=== PATIENT | female | born 1935 | race Caucasian/White ===

== ENCOUNTER 2016-12-18 16:59 | Emergency (ER) | payer MEDICARE, OTHER ==
[2016-12-18] MEDS ORDERED: Sodium Chloride 0.9% 1,000 ML IV ONE (17:08)
[2016-12-18] MEDS ORDERED: Sodium Chloride 0.9% 10 ML Syringe FLUSH PRN (17:08)
[2016-12-18] MEDS ORDERED: Meropenem 1 GM in Sodium Chloride 0.9% 100 ML IV ONE ×2 (17:19→17:51)
--- NOTE | 2016-12-18 17:19 | EDM.PDOC ---
ED HPI Skin/Rash - General Chief Complaint: Skin Complaint Stated Complaint: wound infection Time Seen by Provider: 12/18/16 17:06 Source: Reports: Patient, Family History Limitations: Reports: No limitations - History of Present Illness INITIAL COMMENTS - FREE TEXT/NARRATIVE: Patient reports a left inguinal hernia repair performed by Dr. Maldonado from [place] performed here on December 08. She admits to having some post operative pain, but approximately 4 days ago, the pain did increase, she began to have fever, and she did notice a hardening lump under her incision. She also states fewer bowel movements than usual, not passing as much gas. Denies confusion, shortness of breath. Has been very tired the last few days and was encouraged by family to be seen. Transferred here from the [facility] and Dr. Frias. No nausea or vomiting. Symptom Onset Date: 12/14/16 Timing: Reports: still present, worse, gradual onset Location, Skin: Reports: abdomen Front/Back Body Image: 1 - site 17 cm transversely. 13 cm vertically Quality: Reports: Ache, Pressure Severity: moderate Known Identified Source: possible/maybe Place of Occurrence: other (post operative) Sick Contact: no Associated Symptoms: Reports: fever/chills, malaise, loss of appetite Similar Symptoms Previously: no Recent Medical Care: yes - Related Data Allergies Allergy/AdvReac Type Severity Reaction Status Date / Time hydroxychloroquine Allergy Shortness Verified 12/18/16 17:16 [From Plaquenil] of Breath minocycline Allergy Hives Verified 12/18/16 17:16 terbinafine [From Lamisil] Allergy Other Verified 12/18/16 17:16 Home Meds: Ambulatory Orders Medication Instructions Recorded Confirmed Aspirin [Halfprin] 81 mg PO DAILY 12/04/16 12/08/16 Calcium Carbonate [Calcium] 500 mg PO DAILY 12/04/16 12/08/16 Hydrochlorothiazide 25 mg PO DAILY 12/04/16 12/08/16 Isosorbide Mononitrate [Imdur] 30 mg PO DAILY 12/04/16 12/08/16 Levothyroxine [Synthroid] 100 mcg PO DAILY 12/04/16 12/08/16 Metoprolol Tartrate [Lopressor] 25 mg PO BID 12/04/16 12/08/16 Multivitamin [Multivitamins] 2 tab PO DAILY 12/04/16 12/08/16 Simvastatin [Zocor] 10 mg PO DAILY 12/04/16 12/08/16 Triamcinolone Acetonide 1 applic TOP BID 12/04/16 12/04/16 [Triamcinolone Acetonide 0.1% Crm] Past Medical History HEENT History: Reports: Cataract, Macular degeneration Cardiovascular History: Reports: CAD, Hypertension Respiratory History: Reports: None Gastrointestinal History: Reports: Colon polyp, Other (see below) Other Gastrointestinal History: Left Inguinal hernia Genitourinary History: Reports: Urinary incontinence Musculoskeletal History: Reports: Osteoarthritis Neurological History: Reports: None Psychiatric History: Reports: None Endocrine/Metabolic History: Reports: Hypothyroidism Hematologic History: Reports: None Immunologic History: Reports: None Oncologic (Cancer) History: Reports: None Dermatologic History: Reports: None - Past Surgical History Head Surgeries/Procedures: Reports: None HEENT Surgical History: Reports: Cataract surgery Cardiovascular Surgical History: Reports: None GI Surgical History: Reports: Appendectomy, Colonoscopy Female Surgical History: Reports: Hysterectomy Musculoskeletal Surgical History: Reports: None Social & Family History - Tobacco Use Smoking Status *Q: Never Smoker - Alcohol Use Days Per Week of Alcohol Use: 0 Number of Drinks Per Day: 0 Total Drinks Per Week: 0 - Recreational Drug Use Recreational Drug Use: No Drug Use in Last 12 Months: No ED ROS GENERAL - Review of Systems Review Of Systems: See Below Constitutional: Reports: fever, malaise, fatigue, decreased appetite. Denies: chills HEENT: Reports: No symptoms Respiratory: Reports: no symptoms Cardiovascular: Reports: No symptoms Endocrine: Reports: no symptoms GI/Abdominal: Reports: Abdominal pain (left lower quadrant), Decreased appetite , Other (reduction in stools and flatus) : Reports: no symptoms Musculoskeletal: Reports: no symptoms Skin: Reports: erythema, wound, other (wound hardness) Neurological: Reports: no symptoms Psychiatric: Reports: No symptoms Hematologic/Lymphatic: Reports: no symptoms Immunologic: Reports: no symptoms ED EXAM, SKIN/RASH Exam: See Below Exam Limited By: No limitations General Appearance: alert, WD/WN, no apparent distress Eye Exam: bilateral eye: EOMI, PERRL Ears: normal TMs Nose: normal inspection Throat/Mouth: Normal inspection, Normal oropharynx Head: atraumatic, normocephalic Neck: normal inspection, supple, non-tender, full range of motion Respiratory/Chest: no respiratory distress, lungs clear, normal breath sounds, no accessory muscle use, chest non-tender Cardiovascular: normal peripheral pulses, regular rate, rhythm, no edema, no JVD , no murmur Peripheral Pulses: 2+: posterior tibial (L), posterior tibial (R), dorsalis pedis (L), dorsalis pedis (R) GI/Abdominal: tender (tender left lower quadrant, transverse incision from inguinal hernia surgery, ecchymotic, erythemic, hot to palpation, hard large subcutaneous nodule/abscess, no drainage from wound ) Location, Skin: abdomen (LLQ; transverse incision from inguinal hernia surgery, ecchymotic, erythemic, hot to palpation, hard large subcutaneous nodule/abscess , no drainage from wound, incision C/D/I) Characteristics: erythematous Associated features: warmth, tenderness, swelling, inflammation. No: crusting, weeping Lymphatic: no adenopathy Course - Vital Signs Last Recorded V/S: Last Vital Signs Temp 38.7 C H 12/18/16 17:05 Pulse 95 12/18/16 17:05 Resp 20 12/18/16 17:05 BP 153/73 H 12/18/16 17:05 Pulse Ox - Orders/Labs/Meds Orders: Active Orders 24 hr Category Date Time Status Abdomen Pelvis w Cont [CT] Stat Exams 12/18/16 17:39 Taken CULTURE BLOOD [BC] Stat Lab 12/18/16 17:25 Results CULTURE BLOOD [BC] Stat Lab 12/18/16 17:34 Results Sodium Chloride 0.9% [Saline Flush] Med 12/18/16 17:08 Active 10 ml FLUSH ASDIRECTED PRN Blood Culture x2 Reflex Set [OM.PC] Stat Oth 12/18/16 17:08 Ordered Saline Lock Insert [OM.PC] Routine Oth 12/18/16 17:08 Ordered Medication Orders Sodium Chloride (Saline Flush) 10 ml FLUSH ASDIRECTED PRN PRN Reason: Keep Vein Open Labs: Laboratory Tests 12/18/16 12/18/16 12/18/16 Range/Units 17:25 17:25 17:25 WBC 6.9 (4.0-10.0) x10^3/uL RBC 3.20 L (4.00-5.50) x10^6/uL Hgb 10.4 L (12.0-16.0) g/dL Hct 31.0 L (33.0-47.0) % MCV 96.9 H (78.0-93.0) fL MCH 32.5 H (26.0-32.0) pg MCHC 33.5 (32.0-36.0) g/dL RDW Coeff of Candi 12.6 (10.0-15.0) % Plt Count 201 (130-400) x10^3/uL Neut % (Auto) 64.3 (50.0-80.0) % Lymph % (Auto) 16.2 L (25.0-50.0) % [place] % (Auto) 18.8 H (2.0-11.0) % Eos % (Auto) 0.6 (0.0-4.0) % Baso % (Auto) 0.1 L (0.2-1.2) % Sodium 134 L (138-146) mmol/L Potassium 3.7 (3.5-4.9) mmol/L Chloride 96 L (98-109) mmol/L Carbon Dioxide 26 (24-29) mmol/L BUN 12 (8-26) mg/dL Creatinine 0.6 (0.6-1.3) mg/dL Est Cr Clr Drug Dosing 65.65 mL/min Estimated GFR (MDRD) > 60 Glucose 157 H (70-105) mg/dL Lactic Acid 2.7 H (0.4-2.0) mmol/L Calcium 8.5 (8.5-10.1) mg/dL Corrected Calcium 9.62 (8.5-10.1) mg/dL Total Bilirubin 0.7 (0.2-1.0) mg/dL AST 33 (15-37) U/L ALT 27 (14-59) U/L Alkaline Phosphatase 86 (46-116) U/L C-Reactive Protein 11.6 H (<=0.9) mg/dL Total Protein 7.2 (6.4-8.2) g/dL Albumin 2.6 L (3.4-5.0) g/dL Globulin 4.6 Albumin/Globulin Ratio 0.57 Meds: Medications Generic Name Dose Route Start Last Admin Trade Name Bettye PRN Reason Stop Dose Admin Sodium Chloride 10 ml 12/18/16 17:08 Saline Flush FLUSH ASDIRECTED PRN Keep Vein Open Discontinued Medications Generic Name Dose Route Start Last Admin Trade Name Bettye PRN Reason Stop Dose Admin Sodium Chloride 1,000 mls @ 999 mls/hr 12/18/16 17:08 12/18/16 17:49 Normal Saline IV 12/18/16 18:08 999 mls/hr .BOLUS ONE Administration Meropenem 1 gm/ Sodium 100 mls @ 200 mls/hr 12/18/16 17:19 Chloride IV 12/18/16 17:48 ONETIME ONE Vancomycin HCl 1 gm/ Sodium 250 mls @ 250 mls/hr 12/18/16 17:19 Chloride IV 12/18/16 18:18 ONETIME ONE Meropenem 1 gm/ Sodium 100 mls @ 200 mls/hr 12/18/16 17:51 Chloride IV 12/18/16 18:20 ONETIME ONE Vancomycin HCl 1 gm/ Sodium 250 mls @ 250 mls/hr 12/18/16 17:51 12/18/16 17: 58 Chloride IV 12/18/16 18:50 250 mls/hr ONETIME ONE Administration Sodium Chloride 100 mls @ 2 mls/sec 12/18/16 18:16 12/18/16 18:17 Normal Saline IV 12/18/16 18:17 2 mls/sec ONETIME ONE Administration Iopamidol 100 ml 12/18/16 18:16 12/18/16 18:17 Isovue-300 (61%) IVPUSH 12/18/16 18:17 100 ml ONETIME ONE Administration Meropenem 1 gm 12/18/16 18:00 Merrem IV 12/18/16 18:01 ONETIME ONE Meropenem 1 gm 12/18/16 18:00 12/18/16 17:53 Merrem IVPUSH 12/18/16 18:01 1 gm ONETIME ONE Administration - Re-Assessments/Exams Free Text/Narrative Re-Assessment/Exam: 12/18/16 20:28 Upon results of labs, 1 gram Merrem, and [address] Joe Foy, general surgeon from [place] called for consultation after CT abdomen showed abscess. He did recommend to send her home with NPO status after midnight and arrival to the [facility] tomorrow AM at 0630 for I & D of abdominal abscess. Departure - Departure Time of Disposition: 19:22 Disposition: Home, Self-Care 01 Condition: fair Clinical Impression: Abdominal visceral abscess Instructions: Abdominal Pain, Adult, [id number] Additional Instructions: Do not eat or drink anything after midnight tonight Dr. Joe Foy, general surgeon military education coordinator wants you to go to [facility] tomorrow morning at 0630. You will undergo surgery to drain the abscess and treat with additional antibiotics I would advise that if you have any problems during the evening that you go to the [facility] as they will be doing the surgery and admitting you Please call with any questions. - Problem List & Annotations (1) Abdominal visceral abscess SNOMED Code(s): 15058314 Code(s): K65.1 - PERITONEAL ABSCESS Status: Acute Priority: Medium Current Visit: Yes - Problem List Review Problem List Initiated/Reviewed/Updated: Yes - My Orders Last 24 Hours: My Active Orders 12/18/16 17:08 Sodium Chloride 0.9% [Saline Flush] 10 ml FLUSH ASDIRECTED PRN Blood Culture x2 Reflex Set [OM.PC] Stat Saline Lock Insert [OM.PC] Routine 12/18/16 17:25 CULTURE BLOOD [BC] Stat 12/18/16 17:34 CULTURE BLOOD [BC] Stat 12/18/16 17:39 Abdomen Pelvis w Cont [CT] Stat - Assessment/Plan Last 24 Hours: My Active Orders 12/18/16 17:08 Sodium Chloride 0.9% [Saline Flush] 10 ml FLUSH ASDIRECTED PRN Blood Culture x2 Reflex Set [OM.PC] Stat Saline Lock Insert [OM.PC] Routine 12/18/16 17:25 CULTURE BLOOD [BC] Stat 12/18/16 17:34 CULTURE BLOOD [BC] Stat 12/18/16 17:39 Abdomen Pelvis w Cont [CT] Stat Assessment:: left lower quadrant abdominal abscess Plan: Do not eat or drink anything after midnight tonight Dr. Joe Foy, general surgeon military education coordinator wants you to go to [facility] tomorrow morning at 0630. You will undergo surgery to drain the abscess and treat with additional antibiotics I would advise that if you have any problems during the evening that you go to the [facility] as they will be doing the surgery and admitting you Please call with any questions.
[2016-12-18 17:35] VITALS: BP 153/73
[2016-12-18 17:48] LABS: SODIUM,NA 134 mmol/L (138-146)
[2016-12-18 17:49] LABS: CHLORIDE,CL 96 mmol/L (98-109)
[2016-12-18] MEDS ORDERED: Meropenem 1 GM SDV IV ONE (18:00)
[2016-12-18] MEDS ORDERED: Meropenem 1 GM SDV IVPUSH ONE (18:00)
[2016-12-18] MEDS ORDERED: Iopamidol 612 MG/ML 100 ML Bottle IVPUSH ONE (18:16)
[2016-12-18] MEDS ORDERED: Sodium Chloride 0.9% 100 ML IV ONE (18:16)
== END 2016-12-18 20:12 | disposition home or self-care (01) ==
LOC: VM.ED 16:59
DX: K65.1 Peritoneal abscess (principal); I25.10 Atherosclerotic heart disease of native coronary artery without angina pectoris; I10 Essential (primary) hypertension; E03.9 Hypothyroidism, unspecified; Z88.5 Allergy status to narcotic agent; Z88.1 Allergy status to other antibiotic agents; Z79.82 Long term (current) use of aspirin; Z79.899 Other long term (current) drug therapy; M19.90 Unspecified osteoarthritis, unspecified site; Z90.49 Acquired absence of other specified parts of digestive tract; Z90.710 Acquired absence of both cervix and uterus
CPT/HCPCS: 36415; 74177; 80053; 83605; 85025; 86140; 87040; 96361; 96365; 96375; 99285; J2185; J3370; J7030; J7050; Q9967

== ENCOUNTER 2023-02-09 03:05 | Inpatient (IN) | payer MEDICARE, OTHER ==
[2023-02-09] MEDS ORDERED: Sodium Chloride 0.9% 1,000 ML IV ONE (03:28)
[2023-02-09 03:58] LABS: HEMATOCRIT 42.2 % (33.0-47.0); HEMOGLOBIN 14.8 g/dL (12.0-16.0); IMMATURE GRAN ABSOLUTE AUTO 0.01 x10^3/uL (0.00-0.07); LYMPHOCYTES ABSOLUTE AUTO 0.8 x10^3/uL (1.0-4.8); LYMPHOCYTES PERCENT AUTO 8.4 % (25.0-50.0); MEAN CORPUSCULAR HGB CONC 35.1 g/dL (32.0-36.0); MONOCYTES ABSOLUTE AUTO 1.3 x10^3/uL (0.0-0.8); MONOCYTES PERCENT AUTO 14.1 % (2.0-11.0); NEUTROPHILS ABSOLUTE AUTO 7.3 x10^3/uL (1.8-7.7); NEUTROPHILS PERCENT AUTO 77.4 % (50.0-80.0); PLATELET COUNT,PLT 128 x10^3/uL (130-400); RED BLOOD CELL COUNT 4.49 x10^6/uL (4.00-5.50); WHITE BLOOD CELL COUNT,WBC 9.4 x10^3/uL (4.0-10.0)
[2023-02-09] MEDS ORDERED: Acetaminophen 325 MG Tab PO ONE (04:16)
[2023-02-09 04:22] LABS: A/G RATIO 0.67; ALANINE AMINOTRANSFERASE,ALT 80 U/L (14-59); ALKALINE PHOSPHATASE 91 U/L (46-116); ASPARTATE AMNIOTRANSFERASE,AST 183 U/L (15-37); BILIRUBIN TOTAL 1.3 mg/dL (0.2-1.0); BLOOD UREA NITROGEN,BUN 16 mg/dL (7-18); C-REACTIVE PROTEIN 1.8 mg/dL (<=0.9); CALCIUM 8.8 mg/dL (8.5-10.1); CARBON DIOXIDE,CO2 27 mmol/L (21-32); CHLORIDE,CL 97 mmol/L (98-107); CREATININE 1.1 mg/dL (0.55-1.02); GLUCOSE RANDOM 179 mg/dL (70-99); LIPASE 39 U/L (73-393); POTASSIUM,K 3.2 mmol/L (3.5-5.1); PROTEIN TOTAL,TP 7.5 g/dL (6.4-8.2); SODIUM,NA 135 mmol/L (136-145)
[2023-02-09 04:26] LABS: ANION GAP 14.2 mmol/L (5-15)
[2023-02-09 04:27] LABS: ESTIMATED GFR 49 mL/min (>=60)
[2023-02-09] MEDS ORDERED: cefTRIAXone 1 GM Vial IVPUSH ONE (04:27)
[2023-02-09 04:41] LABS: CORONAVIRUS COVID-19 NAA NEGATIVE (NEGATIVE); INFLUENZA A NAA NEGATIVE (NEGATIVE); INFLUENZA B NAA NEGATIVE (NEGATIVE)
[2023-02-09 04:42] LABS: RESPIRATORY SYNCYTIAL VIR NAA NEGATIVE (NEGATIVE)
[2023-02-09] MEDS ORDERED: Iopamidol 612 MG/ML 100 ML Bottle IVPUSH ONE (04:53)
[2023-02-09 06:43] LABS: APPEARANCE,URINE CLOUDY (CLEAR); BILIRUBIN,URINE NEGATIVE (NEGATIVE); COLOR,URINE YELLOW (YELLOW); GLUCOSE,URINE NEGATIVE (NEGATIVE); KETONES,URINE NEGATIVE (NEGATIVE); LEUKOCYTE ESTERASE,URINE NEGATIVE (NEGATIVE); NITRITE,URINE POSITIVE (NEGATIVE); OCCULT BLOOD,URINE LARGE (NEGATIVE); PH,URINE 5.5 (5.0-8.0); PROTEIN,URINE >=300 mg/dL (NEGATIVE); UROBILINOGEN,URINE 0.2 EU/dL (0.2)
[2023-02-09 06:58] LABS: BACTERIA,URINE MANY /HPF (NOT SEEN); MUCUS,URINE RARE /LPF (NOT SEEN); SQUAMOUS EPITHELIAL CELLS,UR NOT SEEN /HPF (NOT SEEN)
[2023-02-09] MEDS ORDERED: Heparin Sodium 5,000 Units/ML Vial IVPUSH ONE ×2 (07:44)
[2023-02-09] MEDS ORDERED: KCL IV SCH (07:45)
[2023-02-09] MEDS ORDERED: Heparin Sodium/0.45% NaCl 25,000 UNITS/500 ML BAG IV SCH ×2 (07:45→21:32)
[2023-02-09] MEDS ORDERED: NACL IV SCH (07:45)
[2023-02-09] MEDS ORDERED: DEXTROSE IV SCH (07:45)
[2023-02-09] MEDS ORDERED: Acetaminophen 325 MG Tab PO PRN (08:03)
[2023-02-09 08:52] LABS: MAGNESIUM 1.8 mg/dL (1.8-2.4)
[2023-02-09] MEDS ORDERED: Levothyroxine 88 MCG Tab PO SCH (09:00)
[2023-02-09] MEDS: Cyanocobalamin (Vitamin B12) 250 MCG Tab PO SCH (09:15)
[2023-02-09] MEDS: Hydrochlorothiazide 25 MG Tab PO SCH (09:17)
[2023-02-09] MEDS: Isosorbide Mononitrate 30 MG Tab.ER PO SCH (09:17)
[2023-02-09] MEDS: Cholecalciferol (Vitamin D3) 25 MCG Tab PO SCH (09:17)
[2023-02-09] MEDS: Multivitamin Tab PO SCH (09:17)
[2023-02-09] MEDS: Metoprolol Tartrate 25 MG Tab PO SCH ×2 (09:18→21:11)
[2023-02-09] MEDS: Aspirin 81 MG Tab.EC PO SCH (09:18)
[2023-02-09] MEDS: Levothyroxine 88 MCG Tab PO SCH (09:33)
[2023-02-09 14:13] LABS: CREATININE 1.2 mg/dL (0.55-1.02); EST CRCL DRUG DOSING (CG) 30.84 mL/min; POTASSIUM,K 3.5 mmol/L (3.5-5.1)
[2023-02-09 14:14] LABS: ANION GAP 10.5 mmol/L (5-15)
[2023-02-09] MEDS ORDERED: Furosemide 20 MG/2 ML VIAL IV ONE (15:24)
[2023-02-09] MEDS: KETOCONAZOLE SHAMPOO TOP SCH (15:27)
[2023-02-09] MEDS: Calcium Carbonate/Vitamin D3 1250 MG-5 MCG Tab PO SCH (17:36)
[2023-02-09] MEDS ORDERED: Metoprolol Tartrate 25 MG Tab PO ONE (18:03)
[2023-02-09] MEDS: DEXTROSE IV SCH (18:28)
[2023-02-09] MEDS: KCL IV SCH (18:28)
[2023-02-09] MEDS: NACL IV SCH (18:28)
[2023-02-09] MEDS: Warfarin 5 MG Tab PO SCH (20:50)
[2023-02-10] MEDS ORDERED: Heparin Sodium/0.45% NaCl 25,000 UNITS/500 ML BAG IV SCH (02:41)
[2023-02-10] MEDS: Levothyroxine 88 MCG Tab PO SCH (06:09)
[2023-02-10] MEDS: NACL IV SCH (07:50)
[2023-02-10] MEDS: DEXTROSE IV SCH (07:50)
[2023-02-10] MEDS: KCL IV SCH (07:50)
[2023-02-10] MEDS: Cyanocobalamin (Vitamin B12) 250 MCG Tab PO SCH (08:25)
[2023-02-10] MEDS: Isosorbide Mononitrate 30 MG Tab.ER PO SCH (08:25)
[2023-02-10] MEDS: Cholecalciferol (Vitamin D3) 25 MCG Tab PO SCH (08:27)
[2023-02-10] MEDS: Multivitamin Tab PO SCH (08:27)
[2023-02-10] MEDS: Metoprolol Tartrate 25 MG Tab PO SCH ×3 (08:27→20:59)
[2023-02-10] MEDS: Hydrochlorothiazide 25 MG Tab PO SCH (08:28)
[2023-02-10] MEDS: Aspirin 81 MG Tab.EC PO SCH (08:28)
[2023-02-10] MEDS: Calcium Carbonate/Vitamin D3 1250 MG-5 MCG Tab PO SCH ×2 (08:29→18:49)
[2023-02-10] MEDS: cefTRIAXone 1 GM Vial IVPUSH SCH (08:29)
[2023-02-10 08:30] LABS: BASOPHILS PERCENT AUTO 0.1 % (0.2-1.2); EOSINOPHILS PERCENT AUTO 0.1 % (0.0-4.0); HEMATOCRIT 39.6 % (33.0-47.0); HEMOGLOBIN 13.7 g/dL (12.0-16.0); IMMATURE GRAN ABSOLUTE AUTO 0.04 x10^3/uL (0.00-0.07); LYMPHOCYTES ABSOLUTE AUTO 0.9 x10^3/uL (1.0-4.8); LYMPHOCYTES PERCENT AUTO 8.5 % (25.0-50.0); MEAN CORPUSCULAR HEMOGLOBIN 33.3 pg (26.0-32.0); MEAN CORPUSCULAR HGB CONC 34.6 g/dL (32.0-36.0); MEAN CORPUSCULAR VOLUME 96.1 fL (78.0-93.0); MONOCYTES ABSOLUTE AUTO 1.5 x10^3/uL (0.0-0.8); NEUTROPHILS ABSOLUTE AUTO 8.2 x10^3/uL (1.8-7.7); NEUTROPHILS PERCENT AUTO 76.9 % (50.0-80.0); PLATELET COUNT,PLT 102 x10^3/uL (130-400); RED BLOOD CELL COUNT 4.12 x10^6/uL (4.00-5.50); WHITE BLOOD CELL COUNT,WBC 10.6 x10^3/uL (4.0-10.0)
[2023-02-10 08:42] LABS: INR 1.2 (2.0-3.5); PROTHROMBIN TIME 12.9 SEC (9.5-12.2)
[2023-02-10 08:52] LABS: CALCIUM 8.3 mg/dL (8.5-10.1); CREATININE 1.1 mg/dL (0.55-1.02); EST CRCL DRUG DOSING (CG) 26.1 mL/min; POTASSIUM,K 3.2 mmol/L (3.5-5.1); PROTEIN TOTAL,TP 6.9 g/dL (6.4-8.2); TSH ULTRASENSITIVE 0.01 uIU/mL (0.358-3.74)
[2023-02-10 08:57] LABS: ANION GAP 11.2 mmol/L (5-15)
[2023-02-10] MEDS ORDERED: Potassium Bicarbonate/Cit Ac 10 MEQ Effervescent Tab PO SCH (09:02)
[2023-02-10] MEDS ORDERED: Potassium Chloride Riders 10 MEQ in Premix Bag 1 BAG IV ONE (09:03)
[2023-02-10 09:07] LABS: A/G RATIO 0.5; ALBUMIN 2.3 g/dL (3.4-5.0)
[2023-02-10 09:10] LABS: C-REACTIVE PROTEIN 15.5 mg/dL (<=0.9)
[2023-02-10] MEDS ORDERED: Metoprolol Tartrate 5 MG/5 ML SDV IVPUSH ONE ×2 (14:48→15:38)
[2023-02-10] MEDS ORDERED: Sodium Chloride 0.9% 250 ML IV ONE (16:59)
[2023-02-10 17:21] LABS: POTASSIUM,K 3.9 mmol/L (3.5-5.1)
[2023-02-10] MEDS ORDERED: Dextrose 5%-0.9% NaCl with KCl 1,000 ML IV SCH (17:30)
[2023-02-10] MEDS: Hydrocortisone 2.5% Crm 30 GM Tube TOP SCH ×2 (17:42→20:57)
[2023-02-10] MEDS ORDERED: Heparin Sodium 5,000 Units/ML Vial IVPUSH ONE (18:30)
[2023-02-10] MEDS: Warfarin 5 MG Tab PO SCH (20:53)
[2023-02-11] MEDS ORDERED: Diltiazem 50 MG/10 ML SDV IVPUSH ONE (01:31)
[2023-02-11] MEDS ORDERED: Furosemide 20 MG/2 ML VIAL IV ONE ×2 (01:34→13:38)
[2023-02-11] MEDS ORDERED: Dextrose 5%-0.9% NaCl with KCl 1,000 ML IV SCH (01:36)
[2023-02-11 04:50] LABS: BASOPHILS PERCENT AUTO 0.1 % (0.2-1.2); EOSINOPHILS ABSOLUTE AUTO 0.2 x10^3/uL (0.0-0.5); EOSINOPHILS PERCENT AUTO 1.7 % (0.0-4.0); HEMATOCRIT 35.8 % (33.0-47.0); HEMOGLOBIN 12.1 g/dL (12.0-16.0); IMMATURE GRAN ABSOLUTE AUTO 0.02 x10^3/uL (0.00-0.07); LYMPHOCYTES ABSOLUTE AUTO 1.4 x10^3/uL (1.0-4.8); LYMPHOCYTES PERCENT AUTO 14.1 % (25.0-50.0); MEAN CORPUSCULAR HEMOGLOBIN 33.2 pg (26.0-32.0); MEAN CORPUSCULAR HGB CONC 33.8 g/dL (32.0-36.0); MEAN CORPUSCULAR VOLUME 98.1 fL (78.0-93.0); MONOCYTES ABSOLUTE AUTO 1.4 x10^3/uL (0.0-0.8); MONOCYTES PERCENT AUTO 14.9 % (2.0-11.0); NEUTROPHILS ABSOLUTE AUTO 6.6 x10^3/uL (1.8-7.7); PLATELET COUNT,PLT 87 x10^3/uL (130-400); RED BLOOD CELL COUNT 3.65 x10^6/uL (4.00-5.50); WHITE BLOOD CELL COUNT,WBC 9.6 x10^3/uL (4.0-10.0)
[2023-02-11 05:09] LABS: INR 1.3 (2.0-3.5); PROTHROMBIN TIME 14.2 SEC (9.5-12.2)
[2023-02-11 05:13] LABS: A/G RATIO 0.51; BILIRUBIN TOTAL 0.7 mg/dL (0.2-1.0); CALCIUM 7.9 mg/dL (8.5-10.1); CREATININE 1.1 mg/dL (0.55-1.02); EST CRCL DRUG DOSING (CG) 33.65 mL/min; POTASSIUM,K 3.4 mmol/L (3.5-5.1); PROTEIN TOTAL,TP 5.9 g/dL (6.4-8.2)
[2023-02-11 05:14] LABS: ANION GAP 7.4 mmol/L (5-15)
[2023-02-11 05:19] LABS: MAGNESIUM 1.7 mg/dL (1.8-2.4)
[2023-02-11] MEDS: Levothyroxine 88 MCG Tab PO SCH (06:43)
[2023-02-11] MEDS: Calcium Carbonate/Vitamin D3 1250 MG-5 MCG Tab PO SCH ×2 (08:49→18:58)
[2023-02-11] MEDS: Multivitamin Tab PO SCH (08:49)
[2023-02-11] MEDS: Magnesium Oxide 400 MG Tab PO SCH (08:50)
[2023-02-11] MEDS: Potassium Bicarbonate/Cit Ac 10 MEQ Effervescent Tab PO SCH ×2 (08:50→20:21)
[2023-02-11] MEDS: Cyanocobalamin (Vitamin B12) 250 MCG Tab PO SCH (08:51)
[2023-02-11] MEDS: Metoprolol Tartrate 25 MG Tab PO SCH ×2 (08:51→20:22)
[2023-02-11] MEDS: Hydrochlorothiazide 25 MG Tab PO SCH (08:52)
[2023-02-11] MEDS: Cholecalciferol (Vitamin D3) 25 MCG Tab PO SCH (08:52)
[2023-02-11] MEDS: cefTRIAXone 1 GM Vial IVPUSH SCH (08:53)
[2023-02-11] MEDS: Isosorbide Mononitrate 30 MG Tab.ER PO SCH (08:53)
[2023-02-11] MEDS: Aspirin 81 MG Tab.EC PO SCH (08:53)
[2023-02-11] MEDS: Hydrocortisone 2.5% Crm 30 GM Tube TOP SCH ×2 (14:15→20:29)
[2023-02-11] MEDS ORDERED: Warfarin 2.5 MG Tab PO SCH (21:00)
[2023-02-12 06:58] LABS: BASOPHILS PERCENT AUTO 0.2 % (0.2-1.2); EOSINOPHILS ABSOLUTE AUTO 0.3 x10^3/uL (0.0-0.5); EOSINOPHILS PERCENT AUTO 5.3 % (0.0-4.0); HEMATOCRIT 37.5 % (33.0-47.0); HEMOGLOBIN 12.9 g/dL (12.0-16.0); IMMATURE GRAN ABSOLUTE AUTO 0.01 x10^3/uL (0.00-0.07); LYMPHOCYTES ABSOLUTE AUTO 1.2 x10^3/uL (1.0-4.8); MEAN CORPUSCULAR HEMOGLOBIN 32.9 pg (26.0-32.0); MEAN CORPUSCULAR HGB CONC 34.4 g/dL (32.0-36.0); MEAN CORPUSCULAR VOLUME 95.7 fL (78.0-93.0); MONOCYTES ABSOLUTE AUTO 0.9 x10^3/uL (0.0-0.8); MONOCYTES PERCENT AUTO 15.7 % (2.0-11.0); NEUTROPHILS ABSOLUTE AUTO 3.4 x10^3/uL (1.8-7.7); NEUTROPHILS PERCENT AUTO 58.6 % (50.0-80.0); PLATELET COUNT,PLT 105 x10^3/uL (130-400); RED BLOOD CELL COUNT 3.92 x10^6/uL (4.00-5.50); WHITE BLOOD CELL COUNT,WBC 5.9 x10^3/uL (4.0-10.0)
[2023-02-12 07:06] LABS: INR 1.7 (2.0-3.5); PROTHROMBIN TIME 17.8 SEC (9.5-12.2)
[2023-02-12 07:15] LABS: A/G RATIO 0.45; ALBUMIN 1.9 g/dL (3.4-5.0); BILIRUBIN TOTAL 0.5 mg/dL (0.2-1.0); CALCIUM 8.4 mg/dL (8.5-10.1); EST CRCL DRUG DOSING (CG) 37.01 mL/min; MAGNESIUM 1.9 mg/dL (1.8-2.4); POTASSIUM,K 3.5 mmol/L (3.5-5.1); PROTEIN TOTAL,TP 6.1 g/dL (6.4-8.2)
[2023-02-12 07:16] LABS: ANION GAP 9.5 mmol/L (5-15)
[2023-02-12] MEDS: Potassium Bicarbonate/Cit Ac 10 MEQ Effervescent Tab PO SCH ×2 (08:16→20:00)
[2023-02-12] MEDS: Cholecalciferol (Vitamin D3) 25 MCG Tab PO SCH (08:17)
[2023-02-12] MEDS: Calcium Carbonate/Vitamin D3 1250 MG-5 MCG Tab PO SCH ×2 (08:17→17:13)
[2023-02-12] MEDS: Multivitamin Tab PO SCH (08:18)
[2023-02-12] MEDS: Aspirin 81 MG Tab.EC PO SCH (08:19)
[2023-02-12] MEDS: Isosorbide Mononitrate 30 MG Tab.ER PO SCH (08:19)
[2023-02-12] MEDS: Cyanocobalamin (Vitamin B12) 250 MCG Tab PO SCH (08:20)
[2023-02-12] MEDS: Metoprolol Tartrate 25 MG Tab PO SCH (08:22)
[2023-02-12] MEDS: cefTRIAXone 1 GM Vial IVPUSH SCH (08:23)
[2023-02-12] MEDS: Magnesium Oxide 400 MG Tab PO SCH (08:23)
[2023-02-12] MEDS: Digoxin 500 MCG/2 ML Amp IVPUSH SCH ×3 (09:39→19:59)
[2023-02-12] MEDS: Metoprolol Tartrate 50 MG Tab PO SCH ×2 (10:21→19:59)
[2023-02-12] MEDS: KETOCONAZOLE SHAMPOO TOP SCH (11:13)
[2023-02-12] MEDS ORDERED: QUEtiapine 25 MG Tab PO PRN (16:43)
[2023-02-12] MEDS ORDERED: Enoxaparin 60 MG/0.6 ML Syringe SUBCUT ONE (18:00)
[2023-02-12] MEDS: Warfarin 2.5 MG Tab PO SCH (19:59)
[2023-02-12] MEDS ORDERED: Warfarin 5 MG Tab PO SCH (21:00)
[2023-02-12] MEDS ORDERED: LORazepam 2 MG/ML SDV IVPUSH ONE (21:10)
[2023-02-12] MEDS ORDERED: Flumazenil 0.1 MG/ML 5 ML MDV IVPUSH PRN (21:10)
[2023-02-13 06:58] LABS: BASOPHILS PERCENT AUTO 0.2 % (0.2-1.2); EOSINOPHILS ABSOLUTE AUTO 0.3 x10^3/uL (0.0-0.5); EOSINOPHILS PERCENT AUTO 6.7 % (0.0-4.0); HEMATOCRIT 36.1 % (33.0-47.0); HEMOGLOBIN 12.3 g/dL (12.0-16.0); IMMATURE GRAN ABSOLUTE AUTO 0.02 x10^3/uL (0.00-0.07); LYMPHOCYTES ABSOLUTE AUTO 1.1 x10^3/uL (1.0-4.8); LYMPHOCYTES PERCENT AUTO 23.2 % (25.0-50.0); MEAN CORPUSCULAR HEMOGLOBIN 32.7 pg (26.0-32.0); MEAN CORPUSCULAR HGB CONC 34.1 g/dL (32.0-36.0); MONOCYTES ABSOLUTE AUTO 0.9 x10^3/uL (0.0-0.8); MONOCYTES PERCENT AUTO 18.2 % (2.0-11.0); NEUTROPHILS ABSOLUTE AUTO 2.5 x10^3/uL (1.8-7.7); NEUTROPHILS PERCENT AUTO 51.3 % (50.0-80.0); PLATELET COUNT,PLT 117 x10^3/uL (130-400); RED BLOOD CELL COUNT 3.76 x10^6/uL (4.00-5.50); WHITE BLOOD CELL COUNT,WBC 4.8 x10^3/uL (4.0-10.0)
[2023-02-13 07:13] LABS: ANION GAP 8.8 mmol/L (5-15); CALCIUM 8.6 mg/dL (8.5-10.1); EST CRCL DRUG DOSING (CG) 37.01 mL/min; POTASSIUM,K 3.8 mmol/L (3.5-5.1)
[2023-02-13 07:14] LABS: INR 2.5 (2.0-3.5); PROTHROMBIN TIME 25.9 SEC (9.5-12.2)
[2023-02-13] MEDS: cefTRIAXone 1 GM Vial IVPUSH SCH (08:04)
[2023-02-13] MEDS: Calcium Carbonate/Vitamin D3 1250 MG-5 MCG Tab PO SCH ×2 (08:05→18:04)
[2023-02-13] MEDS: Cyanocobalamin (Vitamin B12) 250 MCG Tab PO SCH (08:05)
[2023-02-13] MEDS: Potassium Bicarbonate/Cit Ac 10 MEQ Effervescent Tab PO SCH ×2 (08:05→20:08)
[2023-02-13] MEDS: Multivitamin Tab PO SCH (08:05)
[2023-02-13] MEDS: Magnesium Oxide 400 MG Tab PO SCH (08:05)
[2023-02-13] MEDS: Cholecalciferol (Vitamin D3) 25 MCG Tab PO SCH (08:06)
[2023-02-13] MEDS: Isosorbide Mononitrate 30 MG Tab.ER PO SCH (08:07)
[2023-02-13] MEDS: Metoprolol Tartrate 50 MG Tab PO SCH ×2 (08:07→20:09)
[2023-02-13] MEDS: Aspirin 81 MG Tab.EC PO SCH (08:07)
[2023-02-13] MEDS ORDERED: Flumazenil 0.1 MG/ML 5 ML MDV IVPUSH PRN (08:17)
[2023-02-13] MEDS ORDERED: LORazepam 2 MG/ML SDV IVPUSH PRN (08:17)
[2023-02-13] MEDS: Digoxin 125 MCG Tab PO SCH (08:53)
[2023-02-13] MEDS: Rosuvastatin 20 MG Tab PO SCH (08:54)
[2023-02-13] MEDS: Betamethasone Dipropionate/Clotrimazole 0.05-1% Crm 15 GM Tube TOP SCH ×2 (08:54→20:08)
[2023-02-13] MEDS: Warfarin 2.5 MG Tab PO SCH (20:09)
[2023-02-14 06:55] LABS: BASOPHILS PERCENT AUTO 0.4 % (0.2-1.2); EOSINOPHILS ABSOLUTE AUTO 0.3 x10^3/uL (0.0-0.5); EOSINOPHILS PERCENT AUTO 5.2 % (0.0-4.0); HEMATOCRIT 38.2 % (33.0-47.0); HEMOGLOBIN 13.1 g/dL (12.0-16.0); IMMATURE GRAN ABSOLUTE AUTO 0.02 x10^3/uL (0.00-0.07); LYMPHOCYTES ABSOLUTE AUTO 1.1 x10^3/uL (1.0-4.8); LYMPHOCYTES PERCENT AUTO 19.6 % (25.0-50.0); MEAN CORPUSCULAR HEMOGLOBIN 33.1 pg (26.0-32.0); MEAN CORPUSCULAR HGB CONC 34.3 g/dL (32.0-36.0); MEAN CORPUSCULAR VOLUME 96.5 fL (78.0-93.0); MONOCYTES ABSOLUTE AUTO 1.1 x10^3/uL (0.0-0.8); MONOCYTES PERCENT AUTO 19.1 % (2.0-11.0); NEUTROPHILS ABSOLUTE AUTO 3.1 x10^3/uL (1.8-7.7); NEUTROPHILS PERCENT AUTO 55.3 % (50.0-80.0); PLATELET COUNT,PLT 137 x10^3/uL (130-400); RED BLOOD CELL COUNT 3.96 x10^6/uL (4.00-5.50); WHITE BLOOD CELL COUNT,WBC 5.6 x10^3/uL (4.0-10.0)
[2023-02-14 07:10] LABS: PROTHROMBIN TIME 21.1 SEC (9.5-12.2)
[2023-02-14 07:12] LABS: CALCIUM 8.5 mg/dL (8.5-10.1); EST CRCL DRUG DOSING (CG) 37.01 mL/min; POTASSIUM,K 4.3 mmol/L (3.5-5.1)
[2023-02-14 07:17] LABS: ANION GAP 6.3 mmol/L (5-15)
[2023-02-14] MEDS: cefTRIAXone 1 GM Vial IVPUSH SCH (08:44)
[2023-02-14] MEDS: Rosuvastatin 20 MG Tab PO SCH (08:44)
[2023-02-14] MEDS: Cyanocobalamin (Vitamin B12) 250 MCG Tab PO SCH (08:45)
[2023-02-14] MEDS: Metoprolol Tartrate 50 MG Tab PO SCH (08:46)
[2023-02-14] MEDS: Calcium Carbonate/Vitamin D3 1250 MG-5 MCG Tab PO SCH (08:46)
[2023-02-14] MEDS: Isosorbide Mononitrate 30 MG Tab.ER PO SCH (08:46)
[2023-02-14] MEDS: Cholecalciferol (Vitamin D3) 25 MCG Tab PO SCH (08:46)
[2023-02-14] MEDS: Potassium Bicarbonate/Cit Ac 10 MEQ Effervescent Tab PO SCH (08:47)
[2023-02-14] MEDS: Magnesium Oxide 400 MG Tab PO SCH (08:47)
[2023-02-14] MEDS: Aspirin 81 MG Tab.EC PO SCH (08:47)
[2023-02-14 08:51] VITALS: BP 150/75; PULSE 90
[2023-02-14] MEDS ORDERED: Miconazole 2% Top Powder 45 GM Container TOP SCH (09:00)
[2023-02-14] MEDS ORDERED: Hydrochlorothiazide 25 MG Tab PO SCH (09:00)
[2023-02-14] MEDS: Digoxin 125 MCG Tab PO SCH (09:18)
[2023-02-14] MEDS: KETOCONAZOLE SHAMPOO TOP SCH (09:18)
[2023-02-14] MEDS: Multivitamin Tab PO SCH (09:19)
[2023-02-14] MEDS ORDERED: Warfarin 5 MG Tab PO SCH (21:00)
== END 2023-02-14 09:00 | disposition swing bed (61) | DRG 871 ==
LOC: VM.ED 03:05 → VM.MS 07:07
PROVIDERS: ADMIT Family Medicine; ATTEND Internal Medicine
DX: A41.9 Sepsis, unspecified organism (principal); E43 Unspecified severe protein-calorie malnutrition; I21.4 Non-ST elevation (NSTEMI) myocardial infarction; N12 Tubulo-interstitial nephritis, not specified as acute or chronic; I48.92 Unspecified atrial flutter; I48.91 Unspecified atrial fibrillation; E03.9 Hypothyroidism, unspecified; E87.6 Hypokalemia; I44.7 Left bundle-branch block, unspecified; M35.00 Sjogren syndrome, unspecified; I10 Essential (primary) hypertension; Z20.822 Contact with and (suspected) exposure to COVID-19; I45.10 Unspecified right bundle-branch block; E86.0 Dehydration; M32.9 Systemic lupus erythematosus, unspecified; H35.30 Unspecified macular degeneration; M19.90 Unspecified osteoarthritis, unspecified site; R41.0 Disorientation, unspecified; I25.10 Atherosclerotic heart disease of native coronary artery without angina pectoris; N32.81 Overactive bladder; Z86.010 Personal history of colon polyps; Z98.890 Other specified postprocedural states; Z98.49 Cataract extraction status, unspecified eye; Z88.8 Allergy status to other drugs, medicaments and biological substances; Z90.49 Acquired absence of other specified parts of digestive tract; Z90.710 Acquired absence of both cervix and uterus; Z79.82 Long term (current) use of aspirin; Z79.899 Other long term (current) drug therapy; Z79.890 Hormone replacement therapy; Z68.28 Body mass index [BMI] 28.0-28.9, adult
CPT/HCPCS: 0241U; 36415; 51702; 70450; 71045; 74177; 80048; 80053; 81001; 82550; 82947; 83605; 83690; 83735; 83880; 84132; 84145; 84436; 84443; 84484; 85025; 85610; 85730; 86140; 87040; 87086; 93005; 93010; 96361; 96374; 97110-GP; 97116-GP; 97161-GP; 97165-GO; 97535-GO; 99284; 99285-25; A9270-GY; J0696; J1160; J1644; J1650; J1940; J2060; J3480; J3490; J7030; Q9967

== ENCOUNTER 2023-02-14 09:00 | Inpatient (IN) | payer MEDICARE, OTHER ==
[2023-02-14] MEDS ORDERED: Acetaminophen 325 MG Tab PO PRN (13:11)
[2023-02-14] MEDS ORDERED: QUEtiapine 25 MG Tab PO PRN (13:11)
[2023-02-14] MEDS: Calcium Carbonate/Vitamin D3 1250 MG-5 MCG Tab PO SCH (17:45)
[2023-02-14] MEDS: Potassium Bicarbonate/Cit Ac 10 MEQ Effervescent Tab PO SCH (17:45)
[2023-02-14] MEDS: Metoprolol Tartrate 50 MG Tab PO SCH (20:30)
[2023-02-14] MEDS: Warfarin 5 MG Tab PO SCH (20:30)
[2023-02-14] MEDS: Miconazole 2% Top Powder 45 GM Container TOP SCH (20:31)
[2023-02-15] MEDS: Levothyroxine 75 MCG Tab PO SCH ×2 (06:00→06:31)
[2023-02-15] MEDS ORDERED: cefTRIAXone 1 GM Vial IVPUSH SCH (09:00)
[2023-02-15] MEDS: Metoprolol Tartrate 50 MG Tab PO SCH ×2 (10:59→20:36)
[2023-02-15] MEDS: Hydrochlorothiazide 25 MG Tab PO SCH (10:59)
[2023-02-15] MEDS: Digoxin 125 MCG Tab PO SCH (11:00)
[2023-02-15] MEDS: Isosorbide Mononitrate 30 MG Tab.ER PO SCH (11:00)
[2023-02-15] MEDS: Potassium Bicarbonate/Cit Ac 10 MEQ Effervescent Tab PO SCH ×2 (11:01→17:49)
[2023-02-15] MEDS: Rosuvastatin 20 MG Tab PO SCH (11:02)
[2023-02-15] MEDS: Magnesium Oxide 400 MG Tab PO SCH (11:02)
[2023-02-15] MEDS: Aspirin 81 MG Tab.EC PO SCH (11:02)
[2023-02-15] MEDS: Calcium Carbonate/Vitamin D3 1250 MG-5 MCG Tab PO SCH ×2 (11:02→17:51)
[2023-02-15] MEDS: Miconazole 2% Top Powder 45 GM Container TOP SCH ×2 (11:02→20:37)
[2023-02-15] MEDS: Cyanocobalamin (Vitamin B12) 250 MCG Tab PO SCH (11:03)
[2023-02-15] MEDS: Multivitamin Tab PO SCH (11:03)
[2023-02-15] MEDS: Cholecalciferol (Vitamin D3) 25 MCG Tab PO SCH (11:04)
[2023-02-15] MEDS ORDERED: QUEtiapine 25 MG Tab PO PRN (13:05)
[2023-02-15 20:36] VITALS: BP 140/70
[2023-02-15] MEDS: Warfarin 5 MG Tab PO SCH (20:36)
[2023-02-16 06:37] LABS: BASOPHILS PERCENT AUTO 0.2 % (0.2-1.2); EOSINOPHILS ABSOLUTE AUTO 0.4 x10^3/uL (0.0-0.5); EOSINOPHILS PERCENT AUTO 6.9 % (0.0-4.0); HEMATOCRIT 36.9 % (33.0-47.0); HEMOGLOBIN 12.5 g/dL (12.0-16.0); IMMATURE GRAN ABSOLUTE AUTO 0.02 x10^3/uL (0.00-0.07); LYMPHOCYTES ABSOLUTE AUTO 1.5 x10^3/uL (1.0-4.8); LYMPHOCYTES PERCENT AUTO 28.8 % (25.0-50.0); MEAN CORPUSCULAR HEMOGLOBIN 32.7 pg (26.0-32.0); MEAN CORPUSCULAR HGB CONC 33.9 g/dL (32.0-36.0); MEAN CORPUSCULAR VOLUME 96.6 fL (78.0-93.0); MONOCYTES PERCENT AUTO 20.2 % (2.0-11.0); NEUTROPHILS ABSOLUTE AUTO 2.2 x10^3/uL (1.8-7.7); NEUTROPHILS PERCENT AUTO 43.5 % (50.0-80.0); PLATELET COUNT,PLT 154 x10^3/uL (130-400); RED BLOOD CELL COUNT 3.82 x10^6/uL (4.00-5.50); WHITE BLOOD CELL COUNT,WBC 5.1 x10^3/uL (4.0-10.0)
[2023-02-16 06:52] LABS: ANION GAP 8.1 mmol/L (5-15); CALCIUM 8.8 mg/dL (8.5-10.1); EST CRCL DRUG DOSING (CG) 37.01 mL/min; INR 2.7 (2.0-3.5); POTASSIUM,K 4.1 mmol/L (3.5-5.1); PROTHROMBIN TIME 27.7 SEC (9.5-12.2)
[2023-02-16] MEDS: Levothyroxine 75 MCG Tab PO SCH (08:12)
[2023-02-16] MEDS: Aspirin 81 MG Tab.EC PO SCH (09:20)
[2023-02-16] MEDS: Isosorbide Mononitrate 30 MG Tab.ER PO SCH (09:20)
[2023-02-16] MEDS: Digoxin 125 MCG Tab PO SCH (09:21)
[2023-02-16] MEDS: Metoprolol Tartrate 50 MG Tab PO SCH (09:22)
[2023-02-16] MEDS: Rosuvastatin 20 MG Tab PO SCH (09:22)
[2023-02-16] MEDS: Hydrochlorothiazide 25 MG Tab PO SCH (09:22)
[2023-02-16] MEDS: Multivitamin Tab PO SCH (09:26)
[2023-02-16] MEDS: Magnesium Oxide 400 MG Tab PO SCH (09:26)
[2023-02-16] MEDS: Potassium Bicarbonate/Cit Ac 10 MEQ Effervescent Tab PO SCH (09:26)
[2023-02-16] MEDS: Cholecalciferol (Vitamin D3) 25 MCG Tab PO SCH (09:26)
[2023-02-16] MEDS: Cyanocobalamin (Vitamin B12) 250 MCG Tab PO SCH (09:27)
[2023-02-16 09:42] VITALS: PULSE 70
[2023-02-16] MEDS: Miconazole 2% Top Powder 45 GM Container TOP SCH (09:42)
[2023-02-16] MEDS: Calcium Carbonate/Vitamin D3 1250 MG-5 MCG Tab PO SCH (09:45)
[2023-02-16] MEDS ORDERED: Warfarin 2.5 MG Tab PO SCH ×2 (20:00)
[2023-02-17] MEDS ORDERED: Hydrocortisone 2.5% Crm 30 GM Tube TOP SCH (09:00)
[2023-02-17] MEDS ORDERED: Warfarin 5 MG Tab PO SCH ×2 (20:00)
== END 2023-02-16 10:33 | disposition home health service (06) | DRG 689 ==
LOC: VM.MS 09:00
PROVIDERS: ADMIT Internal Medicine; ATTEND Internal Medicine
DX: N12 Tubulo-interstitial nephritis, not specified as acute or chronic (principal); A41.9 Sepsis, unspecified organism; E43 Unspecified severe protein-calorie malnutrition; I21.4 Non-ST elevation (NSTEMI) myocardial infarction; F05 Delirium due to known physiological condition; I25.10 Atherosclerotic heart disease of native coronary artery without angina pectoris; I48.91 Unspecified atrial fibrillation; E03.9 Hypothyroidism, unspecified; E87.6 Hypokalemia; E86.0 Dehydration; F03.90 Unspecified dementia, unspecified severity, without behavioral disturbance, psychotic disturbance, mood disturbance, and anxiety; I10 Essential (primary) hypertension; M35.00 Sjogren syndrome, unspecified; Z68.28 Body mass index [BMI] 28.0-28.9, adult; H35.30 Unspecified macular degeneration; Z88.8 Allergy status to other drugs, medicaments and biological substances; Z86.010 Personal history of colon polyps; Z98.49 Cataract extraction status, unspecified eye; Z98.890 Other specified postprocedural states; Z90.49 Acquired absence of other specified parts of digestive tract; Z90.710 Acquired absence of both cervix and uterus
CPT/HCPCS: 36415; 80048; 85025; 85610; 95851-GO; 97110-GP; 97116-GP; 97530-GO; 97535-GO; A9270-GY

== ENCOUNTER 2023-03-02 17:59 | Emergency (ER) | payer MEDICARE, OTHER ==
[2023-03-02 18:46] LABS: BASOPHILS PERCENT AUTO 0.5 % (0.2-1.2); EOSINOPHILS ABSOLUTE AUTO 0.1 x10^3/uL (0.0-0.5); EOSINOPHILS PERCENT AUTO 2.6 % (0.0-4.0); HEMATOCRIT 39.9 % (33.0-47.0); HEMOGLOBIN 13.8 g/dL (12.0-16.0); LYMPHOCYTES PERCENT AUTO 46.9 % (25.0-50.0); MEAN CORPUSCULAR HEMOGLOBIN 32.6 pg (26.0-32.0); MEAN CORPUSCULAR HGB CONC 34.6 g/dL (32.0-36.0); MEAN CORPUSCULAR VOLUME 94.3 fL (78.0-93.0); MONOCYTES ABSOLUTE AUTO 0.8 x10^3/uL (0.0-0.8); MONOCYTES PERCENT AUTO 19.7 % (2.0-11.0); NEUTROPHILS ABSOLUTE AUTO 1.3 x10^3/uL (1.8-7.7); NEUTROPHILS PERCENT AUTO 30.3 % (50.0-80.0); PLATELET COUNT,PLT 138 x10^3/uL (130-400); RED BLOOD CELL COUNT 4.23 x10^6/uL (4.00-5.50); WHITE BLOOD CELL COUNT,WBC 4.2 x10^3/uL (4.0-10.0)
[2023-03-02 19:05] LABS: A/G RATIO 0.65; ALANINE AMINOTRANSFERASE,ALT 25 U/L (14-59); ALBUMIN 2.8 g/dL (3.4-5.0); ALKALINE PHOSPHATASE 92 U/L (46-116); ANION GAP 10.4 mmol/L (5-15); ASPARTATE AMNIOTRANSFERASE,AST 32 U/L (15-37); BILIRUBIN TOTAL 0.7 mg/dL (0.2-1.0); BLOOD UREA NITROGEN,BUN 10 mg/dL (7-18); C-REACTIVE PROTEIN < 0.2 mg/dL (<=0.9); CALCIUM 8.9 mg/dL (8.5-10.1); CARBON DIOXIDE,CO2 31 mmol/L (21-32); CHLORIDE,CL 98 mmol/L (98-107); CREATININE 0.9 mg/dL (0.55-1.02); ESTIMATED GFR 63 mL/min (>=60); GLUCOSE RANDOM 123 mg/dL (70-99); POTASSIUM,K 3.4 mmol/L (3.5-5.1); PROTEIN TOTAL,TP 7.1 g/dL (6.4-8.2); SODIUM,NA 136 mmol/L (136-145)
[2023-03-02 19:11] LABS: BILIRUBIN,URINE NEGATIVE (NEGATIVE); COLOR,URINE YELLOW (YELLOW); GLUCOSE,URINE NEGATIVE (NEGATIVE); KETONES,URINE NEGATIVE (NEGATIVE); LEUKOCYTE ESTERASE,URINE NEGATIVE (NEGATIVE); NITRITE,URINE NEGATIVE (NEGATIVE); OCCULT BLOOD,URINE TRACE-LYSED (NEGATIVE); PROTEIN,URINE >=300 mg/dL (NEGATIVE); UROBILINOGEN,URINE 0.2 EU/dL (0.2)
[2023-03-02 19:22] LABS: APPEARANCE,URINE SLIGHTLY CLOUDY (CLEAR); BACTERIA,URINE MODERATE /HPF (NOT SEEN); MUCUS,URINE OCCASIONAL /LPF (NOT SEEN); RBC,URINE 0-5 /HPF (NOT SEEN); SQUAMOUS EPITHELIAL CELLS,UR RARE /HPF (NOT SEEN); WBC,URINE 0-5 /HPF (NOT SEEN)
[2023-03-02 20:46] VITALS: BP 169/88; PULSE 77
== END 2023-03-02 21:24 | disposition home or self-care (01) ==
LOC: VM.ED 17:59
DX: R41.0 Disorientation, unspecified (principal); I25.10 Atherosclerotic heart disease of native coronary artery without angina pectoris; I10 Essential (primary) hypertension; E03.9 Hypothyroidism, unspecified; Z88.1 Allergy status to other antibiotic agents; Z88.8 Allergy status to other drugs, medicaments and biological substances; Z79.899 Other long term (current) drug therapy
CPT/HCPCS: 36415; 70450; 80053; 81001; 83605; 84145; 85025; 86140; 87040; 99284; 99285

== ENCOUNTER 2023-03-18 14:37 | Inpatient (IN) | payer MEDICARE, OTHER ==
[2023-03-18] MEDS ORDERED: Sodium Chloride 0.9% 10 ML Syringe FLUSH PRN (14:47)
[2023-03-18 15:09] LABS: BASOPHILS PERCENT AUTO 0.2 % (0.2-1.2); EOSINOPHILS PERCENT AUTO 0.7 % (0.0-4.0); HEMATOCRIT 39.4 % (33.0-47.0); HEMOGLOBIN 13.6 g/dL (12.0-16.0); LYMPHOCYTES ABSOLUTE AUTO 1.3 x10^3/uL (1.0-4.8); LYMPHOCYTES PERCENT AUTO 23.2 % (25.0-50.0); MEAN CORPUSCULAR HEMOGLOBIN 33.4 pg (26.0-32.0); MEAN CORPUSCULAR HGB CONC 34.5 g/dL (32.0-36.0); MEAN CORPUSCULAR VOLUME 96.8 fL (78.0-93.0); MONOCYTES ABSOLUTE AUTO 0.8 x10^3/uL (0.0-0.8); MONOCYTES PERCENT AUTO 14.9 % (2.0-11.0); NEUTROPHILS ABSOLUTE AUTO 3.4 x10^3/uL (1.8-7.7); PLATELET COUNT,PLT 128 x10^3/uL (130-400); RED BLOOD CELL COUNT 4.07 x10^6/uL (4.00-5.50); WHITE BLOOD CELL COUNT,WBC 5.6 x10^3/uL (4.0-10.0)
[2023-03-18 15:24] LABS: INR 3.5 (2.0-3.5); PROTHROMBIN TIME 35.8 SEC (9.5-12.2); PTT,PARTIAL THROMBOPLSTIN TIME 39.3 SEC (23.6-33.6)
[2023-03-18 15:30] LABS: APPEARANCE,URINE SLIGHTLY CLOUDY (CLEAR); BILIRUBIN,URINE SMALL (NEGATIVE); COLOR,URINE YELLOW (YELLOW); GLUCOSE,URINE NEGATIVE (NEGATIVE); KETONES,URINE NEGATIVE (NEGATIVE); LEUKOCYTE ESTERASE,URINE NEGATIVE (NEGATIVE); NITRITE,URINE NEGATIVE (NEGATIVE); OCCULT BLOOD,URINE NEGATIVE (NEGATIVE); PH,URINE 6.5 (5.0-8.0); PROTEIN,URINE >=300 mg/dL (NEGATIVE)
[2023-03-18 15:30] LABS: LACTIC ACID 2.4 mmol/L (0.4-2.0)
[2023-03-18] MEDS ORDERED: Sodium Chloride 0.9% 1,000 ML IV ONE (15:35)
[2023-03-18 15:36] LABS: A/G RATIO 0.51; ALANINE AMINOTRANSFERASE,ALT 19 U/L (14-59); ALBUMIN 2.3 g/dL (3.4-5.0); ALKALINE PHOSPHATASE 89 U/L (46-116); ANION GAP 9.5 mmol/L (5-15); ASPARTATE AMNIOTRANSFERASE,AST 25 U/L (15-37); BILIRUBIN TOTAL 0.9 mg/dL (0.2-1.0); BLOOD UREA NITROGEN,BUN 17 mg/dL (7-18); C-REACTIVE PROTEIN 5.6 mg/dL (<=0.9); CALCIUM 8.5 mg/dL (8.5-10.1); CARBON DIOXIDE,CO2 32 mmol/L (21-32); CHLORIDE,CL 101 mmol/L (98-107); CREATININE 1.2 mg/dL (0.55-1.02); ESTIMATED GFR 44 mL/min (>=60); GLUCOSE RANDOM 167 mg/dL (70-99); MAGNESIUM 1.9 mg/dL (1.8-2.4); PHOSPHORUS 2.4 mg/dL (2.6-4.7); POTASSIUM,K 3.5 mmol/L (3.5-5.1); PROTEIN TOTAL,TP 6.8 g/dL (6.4-8.2); SODIUM,NA 139 mmol/L (136-145)
[2023-03-18 15:37] LABS: BACTERIA,URINE FEW /HPF (NOT SEEN); HYALINE CASTS,URINE FEW; MUCUS,URINE FEW /LPF (NOT SEEN); RBC,URINE 0-5 /HPF (NOT SEEN); SQUAMOUS EPITHELIAL CELLS,UR FEW /HPF (NOT SEEN); WBC,URINE 0-5 /HPF (NOT SEEN)
[2023-03-18 15:49] LABS: CORONAVIRUS COVID-19 NAA NEGATIVE (NEGATIVE); INFLUENZA A NAA NEGATIVE (NEGATIVE); INFLUENZA B NAA NEGATIVE (NEGATIVE); RESPIRATORY SYNCYTIAL VIR NAA NEGATIVE (NEGATIVE)
[2023-03-18] MEDS ORDERED: Acetaminophen 325 MG Tab PO PRN (17:33)
[2023-03-18] MEDS ORDERED: Warfarin 2.5 MG Tab PO SCH (20:00)
[2023-03-18] MEDS: Metoprolol Tartrate 50 MG Tab PO SCH (20:45)
[2023-03-18] MEDS: Calcium Carbonate 750 MG Tab.Chew PO SCH (20:45)
[2023-03-19] MEDS: Levothyroxine 75 MCG Tab PO SCH (06:26)
[2023-03-19 07:15] LABS: BASOPHILS PERCENT AUTO 0.5 % (0.2-1.2); EOSINOPHILS ABSOLUTE AUTO 0.1 x10^3/uL (0.0-0.5); EOSINOPHILS PERCENT AUTO 3.8 % (0.0-4.0); HEMATOCRIT 39.2 % (33.0-47.0); HEMOGLOBIN 13.2 g/dL (12.0-16.0); IMMATURE GRAN ABSOLUTE AUTO 0.01 x10^3/uL (0.00-0.07); LYMPHOCYTES ABSOLUTE AUTO 1.1 x10^3/uL (1.0-4.8); LYMPHOCYTES PERCENT AUTO 29.6 % (25.0-50.0); MEAN CORPUSCULAR HEMOGLOBIN 32.6 pg (26.0-32.0); MEAN CORPUSCULAR HGB CONC 33.7 g/dL (32.0-36.0); MEAN CORPUSCULAR VOLUME 96.8 fL (78.0-93.0); MONOCYTES ABSOLUTE AUTO 0.7 x10^3/uL (0.0-0.8); MONOCYTES PERCENT AUTO 19.6 % (2.0-11.0); NEUTROPHILS ABSOLUTE AUTO 1.7 x10^3/uL (1.8-7.7); NEUTROPHILS PERCENT AUTO 46.2 % (50.0-80.0); PLATELET COUNT,PLT 114 x10^3/uL (130-400); RED BLOOD CELL COUNT 4.05 x10^6/uL (4.00-5.50); WHITE BLOOD CELL COUNT,WBC 3.7 x10^3/uL (4.0-10.0)
[2023-03-19 07:28] LABS: PROTHROMBIN TIME 31.3 SEC (9.5-12.2)
[2023-03-19 07:42] LABS: A/G RATIO 0.53; ALBUMIN 2.1 g/dL (3.4-5.0); ANION GAP 10.5 mmol/L (5-15); BILIRUBIN TOTAL 0.9 mg/dL (0.2-1.0); CALCIUM 8.4 mg/dL (8.5-10.1); CREATININE 0.9 mg/dL (0.55-1.02); EST CRCL DRUG DOSING (CG) 46.1 mL/min; POTASSIUM,K 3.5 mmol/L (3.5-5.1); PROTEIN TOTAL,TP 6.1 g/dL (6.4-8.2)
[2023-03-19] MEDS ORDERED: Hydrochlorothiazide 25 MG Tab PO SCH (09:00)
[2023-03-19] MEDS: Calcium Carbonate 750 MG Tab.Chew PO SCH ×2 (09:36→17:59)
[2023-03-19] MEDS: Fish Oil/Omega-3 Fatty Acids 1 Gm Cap PO SCH (09:38)
[2023-03-19] MEDS: Cholecalciferol (Vitamin D3) 25 MCG Tab PO SCH (09:38)
[2023-03-19] MEDS: Magnesium Oxide 400 MG Tab PO SCH (09:39)
[2023-03-19] MEDS: Metoprolol Tartrate 50 MG Tab PO SCH ×2 (09:39→20:01)
[2023-03-19] MEDS: Multivitamin Tab PO SCH (09:39)
[2023-03-19] MEDS: Cyanocobalamin (Vitamin B12) 250 MCG Tab PO SCH (09:39)
[2023-03-19] MEDS: Isosorbide Mononitrate 30 MG Tab.ER PO SCH (09:39)
[2023-03-19] MEDS: Digoxin 125 MCG Tab PO SCH (09:39)
[2023-03-19] MEDS: QUEtiapine 25 MG Tab PO PRN (13:54)
[2023-03-19] MEDS: Nystatin Crm 30 GM Tube TOP SCH ×2 (14:02→20:02)
[2023-03-19] MEDS: Warfarin 2.5 MG Tab PO SCH (20:00)
[2023-03-19] MEDS: LORazepam 2 MG/ML SDV IM PRN (20:10)
[2023-03-20] MEDS: LORazepam 2 MG/ML SDV IM PRN ×2 (00:50→20:00)
[2023-03-20] MEDS: Levothyroxine 75 MCG Tab PO SCH (06:41)
[2023-03-20 07:04] LABS: BASOPHILS PERCENT AUTO 0.3 % (0.2-1.2); EOSINOPHILS ABSOLUTE AUTO 0.2 x10^3/uL (0.0-0.5); EOSINOPHILS PERCENT AUTO 4.9 % (0.0-4.0); HEMATOCRIT 35.6 % (33.0-47.0); HEMOGLOBIN 12.2 g/dL (12.0-16.0); IMMATURE GRAN ABSOLUTE AUTO 0.01 x10^3/uL (0.00-0.07); LYMPHOCYTES ABSOLUTE AUTO 0.9 x10^3/uL (1.0-4.8); LYMPHOCYTES PERCENT AUTO 28.1 % (25.0-50.0); MEAN CORPUSCULAR HEMOGLOBIN 33.2 pg (26.0-32.0); MEAN CORPUSCULAR HGB CONC 34.3 g/dL (32.0-36.0); MEAN CORPUSCULAR VOLUME 96.7 fL (78.0-93.0); MONOCYTES ABSOLUTE AUTO 0.6 x10^3/uL (0.0-0.8); MONOCYTES PERCENT AUTO 16.8 % (2.0-11.0); NEUTROPHILS ABSOLUTE AUTO 1.6 x10^3/uL (1.8-7.7); NEUTROPHILS PERCENT AUTO 49.6 % (50.0-80.0); PLATELET COUNT,PLT 118 x10^3/uL (130-400); RED BLOOD CELL COUNT 3.68 x10^6/uL (4.00-5.50); WHITE BLOOD CELL COUNT,WBC 3.3 x10^3/uL (4.0-10.0)
[2023-03-20 07:20] LABS: INR 2.5 (2.0-3.5); PROTHROMBIN TIME 25.6 SEC (9.5-12.2)
[2023-03-20 07:26] LABS: CALCIUM 8.9 mg/dL (8.5-10.1); CREATININE 0.9 mg/dL (0.55-1.02); EST CRCL DRUG DOSING (CG) 46.1 mL/min; POTASSIUM,K 3.4 mmol/L (3.5-5.1)
[2023-03-20 07:28] LABS: ANION GAP 10.4 mmol/L (5-15)
[2023-03-20] MEDS: Calcium Carbonate 750 MG Tab.Chew PO SCH ×2 (09:24→19:07)
[2023-03-20] MEDS: Potassium Chloride 10 MEQ Tab.ER PO SCH ×2 (09:25→19:08)
[2023-03-20] MEDS: Cyanocobalamin (Vitamin B12) 250 MCG Tab PO SCH (09:25)
[2023-03-20] MEDS: Metoprolol Tartrate 50 MG Tab PO SCH ×2 (09:25→20:17)
[2023-03-20] MEDS: Multivitamin Tab PO SCH (09:26)
[2023-03-20] MEDS: Digoxin 125 MCG Tab PO SCH (09:26)
[2023-03-20] MEDS: Magnesium Oxide 400 MG Tab PO SCH (09:26)
[2023-03-20] MEDS: Fish Oil/Omega-3 Fatty Acids 1 Gm Cap PO SCH (09:26)
[2023-03-20] MEDS: Cholecalciferol (Vitamin D3) 25 MCG Tab PO SCH (09:26)
[2023-03-20] MEDS: Isosorbide Mononitrate 30 MG Tab.ER PO SCH (09:26)
[2023-03-20] MEDS: Nystatin Crm 30 GM Tube TOP SCH ×2 (09:28→20:17)
[2023-03-20] MEDS ORDERED: LORazepam 0.5 MG Tab PO PRN (16:35)
[2023-03-20] MEDS: QUEtiapine 25 MG Tab PO PRN (19:09)
[2023-03-20] MEDS ORDERED: Warfarin 5 MG Tab PO SCH (20:00)
[2023-03-20] MEDS: Warfarin 2.5 MG Tab PO SCH (20:17)
[2023-03-21] MEDS: LORazepam 2 MG/ML SDV IM PRN (01:12)
[2023-03-21] MEDS: Levothyroxine 75 MCG Tab PO SCH (06:19)
[2023-03-21 07:06] LABS: BASOPHILS PERCENT AUTO 0.3 % (0.2-1.2); EOSINOPHILS ABSOLUTE AUTO 0.2 x10^3/uL (0.0-0.5); EOSINOPHILS PERCENT AUTO 5.2 % (0.0-4.0); HEMATOCRIT 37.7 % (33.0-47.0); HEMOGLOBIN 12.6 g/dL (12.0-16.0); IMMATURE GRAN ABSOLUTE AUTO 0.01 x10^3/uL (0.00-0.07); LYMPHOCYTES ABSOLUTE AUTO 1.1 x10^3/uL (1.0-4.8); LYMPHOCYTES PERCENT AUTO 35.2 % (25.0-50.0); MEAN CORPUSCULAR HEMOGLOBIN 32.3 pg (26.0-32.0); MEAN CORPUSCULAR HGB CONC 33.4 g/dL (32.0-36.0); MEAN CORPUSCULAR VOLUME 96.7 fL (78.0-93.0); MONOCYTES ABSOLUTE AUTO 0.6 x10^3/uL (0.0-0.8); MONOCYTES PERCENT AUTO 19.4 % (2.0-11.0); NEUTROPHILS ABSOLUTE AUTO 1.2 x10^3/uL (1.8-7.7); NEUTROPHILS PERCENT AUTO 39.6 % (50.0-80.0); PLATELET COUNT,PLT 121 x10^3/uL (130-400); WHITE BLOOD CELL COUNT,WBC 3.1 x10^3/uL (4.0-10.0)
[2023-03-21 07:21] LABS: ANION GAP 10.8 mmol/L (5-15); CALCIUM 8.8 mg/dL (8.5-10.1); CREATININE 0.9 mg/dL (0.55-1.02); EST CRCL DRUG DOSING (CG) 46.1 mL/min; POTASSIUM,K 3.8 mmol/L (3.5-5.1)
[2023-03-21 07:29] LABS: PROTHROMBIN TIME 20.6 SEC (9.5-12.2)
[2023-03-21] MEDS: QUEtiapine 25 MG Tab PO PRN (11:32)
[2023-03-21] MEDS: Fish Oil/Omega-3 Fatty Acids 1 Gm Cap PO SCH (12:14)
[2023-03-21] MEDS: Calcium Carbonate 750 MG Tab.Chew PO SCH (12:14)
[2023-03-21] MEDS: Potassium Chloride 10 MEQ Tab.ER PO SCH (12:14)
[2023-03-21] MEDS: Metoprolol Tartrate 50 MG Tab PO SCH (12:14)
[2023-03-21] MEDS: Digoxin 125 MCG Tab PO SCH (12:14)
[2023-03-21] MEDS: Isosorbide Mononitrate 30 MG Tab.ER PO SCH (12:14)
[2023-03-21] MEDS: Multivitamin Tab PO SCH (12:15)
[2023-03-21] MEDS: Cholecalciferol (Vitamin D3) 25 MCG Tab PO SCH (12:15)
[2023-03-21] MEDS: Magnesium Oxide 400 MG Tab PO SCH (12:15)
[2023-03-21] MEDS: Cyanocobalamin (Vitamin B12) 250 MCG Tab PO SCH (12:15)
[2023-03-21 12:16] VITALS: BP 117/62; PULSE 83
== END 2023-03-21 12:55 | DRG 683 ==
LOC: VM.ED 14:37 → VM.MS 16:45
PROVIDERS: ADMIT Nurse Practitioner Family; ATTEND Internal Medicine
DX: R53.1 Weakness (principal); R41.0 Disorientation, unspecified; N17.9 Acute kidney failure, unspecified; E87.20 Acidosis, unspecified; Z20.822 Contact with and (suspected) exposure to COVID-19; F05 Delirium due to known physiological condition; E86.0 Dehydration; E03.9 Hypothyroidism, unspecified; R29.6 Repeated falls; M35.00 Sjogren syndrome, unspecified; F03.90 Unspecified dementia, unspecified severity, without behavioral disturbance, psychotic disturbance, mood disturbance, and anxiety; H35.30 Unspecified macular degeneration; I10 Essential (primary) hypertension; M19.90 Unspecified osteoarthritis, unspecified site; I48.0 Paroxysmal atrial fibrillation; I25.10 Atherosclerotic heart disease of native coronary artery without angina pectoris; L93.1 Subacute cutaneous lupus erythematosus; Z79.01 Long term (current) use of anticoagulants; Z79.899 Other long term (current) drug therapy; Z98.890 Other specified postprocedural states; Z88.8 Allergy status to other drugs, medicaments and biological substances; Z90.710 Acquired absence of both cervix and uterus; Z98.49 Cataract extraction status, unspecified eye
CPT/HCPCS: 0241U; 36415; 70450; 71045; 80048; 80053; 80162; 81001; 82607; 83605; 83735; 84100; 84443; 84484; 85025; 85610; 85730; 86140; 87040; 93010; 96360; 97161-GP; 97165-GO; 99284; 99285-25; A9270-GY; J2060; J7030; U0002